=== PATIENT | male | born 2005 | race African-American/Black ===

== ENCOUNTER 2025-02-21 11:52 | Emergency (ER) | payer MEDICAID, SELFPAY ==
[2025-02-21 11:54] VITALS: BP 124/63; PULSE 67; RESP 16; TEMP 36.9; O2SAT 98; BMI 21.3
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
[2025-02-21 12:50] VITALS: BP 124/63; PULSE 67; RESP 16; TEMP 36.9; O2SAT 98
== END 2025-02-21 12:51 | disposition home or self-care (01) ==
PROVIDERS: Emergency Provider Emergency Medicine
DX: Z48.02 Encounter for removal of sutures (principal)
CPT/HCPCS: 99282